=== PATIENT | male | born 1955 | race Caucasian/White ===

== ENCOUNTER 2016-10-25 23:01 | Emergency (ER) | payer BC ==
[~2016-10-25] VITALS: Ht 177.8 cm; Wt 84.5 kg
[2016-10-25 23:04] VITALS: TEMP 98.1
[2016-10-25] MEDS ORDERED: MIRALAX PA17 GM/Dose PO (23:07)
[2016-10-25] MEDS ORDERED: CIPRO 500MG TA500 MG PO (23:08)
[2016-10-25] MEDS ORDERED: FLAGYL500 MG PO (23:08)
[2016-10-26 00:10] LABS: BASO # 0.1 (0.0-0.2); BASO % 0.9 % (0.0-2.0); EOS # 0.1 (0.0-0.7); EOS % 0.8 % (0-4.0); GRAN # 5.2 (1.4-6.5); GRAN % 65.8 % (42.2-75.2); HEMATOCRIT 45.5 % (42.0-52.0); HEMOGLOBIN 15.8 g/dl (13.5-18.0); LYMPH # 1.7 (1.2-3.4); LYMPH % 21.9 % (20.0-51.0); MEAN CELL VOLUME 83 fl (80.0-100.0); MEAN CORPUSCULAR HEMOGLOBIN 29 pg (27.0-31.0); MEAN CORPUSCULAR HGB CONC 35 g/dl (33.0-37.0); MEAN PLATELET VOLUME 11.5 fl (7.4-10.4); MONO # 0.8 (0.1-0.6); MONO % 10.2 % (1.7-9.3); PLATELET COUNT 225 K/mm3 (130-400); RED BLOOD COUNT 5.47 M/mm3 (4.20-5.60); REDCELL DISTRIBUTION WIDTH-CV 12.7 % (11.5-14.5); WHITE BLOOD COUNT 7.9 K/mm3 (4.8-10.8)
[2016-10-26 00:22] LABS: ADJUSTED CALCIUM 9.5 mg/dL (8.4-10.2); ALANINE AMINOTRANSFERASE 52 U/L (21-72); ALBUMIN 4.3 gm/dL (3.5-5.0); ALKALINE PHOSPHATASE 73 U/L (50-136); ANION GAP 10 mmol/L (7-16); BILIRUBIN,TOTAL 0.9 mg/dL (0.0-1.0); BLOOD UREA NITROGEN 10 mg/dL (9-20); C-REACTIVE PROTEIN < 0.5 mg/dL (0.0-0.9); CALCIUM 9.7 mg/dL (8.4-10.2); CARBON DIOXIDE 28 mmol/L (22-30); CHLORIDE 99 mmol/L (98-107); CREATININE, serum 0.92 mg/dL (0.66-1.25); GLUCOSE 93 mg/dL (74-106); POTASSIUM 3.6 mmol/L (3.4-5.0); SODIUM 137 mmol/L (137-145); TOTAL PROTEIN 7.1 gm/dL (6.4-8.2)
[2016-10-26] MEDS ORDERED: FLAGYL500 MG PO (00:23)
[2016-10-26] MEDS ORDERED: CIPRO 500MG TA500 MG PO (00:23)
[2016-10-26 00:49] VITALS: BP 147/81; PULSE 87
== END 2016-10-26 00:49 | disposition home or self-care (01) ==
LOC: COL.ER 23:01
PROVIDERS: Family Medicine
DX: R10.12 Left upper quadrant pain (principal); K57.92 Diverticulitis of intestine, part unspecified, without perforation or abscess without bleeding